=== PATIENT | female | born 1985 | race Two or more races ===

== ENCOUNTER 2024-10-06 10:25 | Emergency (ER) | payer MEDICAID, SELFPAY ==
[2024-10-06 10:30] VITALS: BP 157/97; PULSE 75; RESP 22; TEMP 37; O2SAT 97; BMI 34.0
--- NOTE | 2024-10-06 10:38 | XR_ITS ---
Examination: CT abdomen and pelvis without contrast. Coronal 3-D reconstructions. Sagittal 2-D reconstructions. Date and time of exam:October 06, 2024 1220 hrs. Indications: Onset right flank pain blood in the urine and pain with urination beginning 3 days ago CTDI: vol (mGy): 11.4 DLP: (mGycm): 611 Technique: Axial images of the abdomen have been obtained, 3 mm slice thickness Intravenous contrast material has not been administered. Low dose protocols were performed. One or more of the following dose reduction techniques were used; automated exposure control, adjustment of the mA and/or KV according to patient size, use of iterative reconstruction technique. Findings: No visualized liver or splenic lesion No gallstones No pancreatic or adrenal mass No renal or ureteral calculi, no hydronephrosis Aorta normal size Normal appendix 17 mm fat-containing umbilical hernia No bowel obstruction Retroverted uterus with diffusely enlarged fundus No bladder mass or bladder calculi Impression: No renal or ureteral calculi, no hydronephrosis No bladder mass or bladder calculi Normal appendix Diffuse enlarged fundus of uterus, consider pelvic sonography follow-up
--- NOTE | 2024-10-06 10:38 | PD.EDRME ---
Rapid Medical Screening Exam RME Arrival date/time: 10/06/24 10:25 39-year-old female presents emergency department complains of right flank pain dysuria Chief Complaint: Back Pain/Injury Time Seen by Provider: 10/06/24 10:35 Vital signs: Vital Signs Temperature 98.6 F 10/06/24 10:30 Pulse Rate 75 10/06/24 10:30 Respiratory Rate 22 H 10/06/24 10:30 Blood Pressure 157/97 H 10/06/24 10:30 Pulse Oximetry (%) 97 10/06/24 10:30 Oxygen Delivery Method Room Air 10/06/24 10:30
[2024-10-06] MEDS: ONDANSETRON ODT 4 MG TABRAP PO (11:01)
[2024-10-06] MEDS: KETOROLAC INJ 30 MG/ML VIAL IM (11:01)
[2024-10-06 11:02] LABS: Collection Type, Urine Clean Catch
[2024-10-06 11:22] LABS: Amorphous Crystals,Urine Present (Absent); Bacteria,Urine 2+; Bilirubin,Urine Negative (Negative); Blood,Urine 2+ (Negative); Color,Urine Yellow (Lt Yel-Yel); Culture Indicated,Urine Contaminated; Glucose, Urine Negative (Negative); Ketones,Urine Negative (Negative); Leukocyte Esterase,Urine Positive (Negative); Nitrite,Urine Negative (Negative); PH,Urine 7.5 (5.0-7.0); Protein,Urine 1+ (Neg - Trace); RBC,Urine 98 /hpf (0-3); Specific Gravity,Urine 1.021 (1.001-1.035); Squamous Epithelial Cell,Urine 61 /hpf (0-5); Urobilinogen,Urine Negative mg/dL (0.0-1.0); WBC,Urine 44 /hpf (0-5)
[2024-10-06 11:25] LABS: Clarity,Urine Turbid (Clear/Hazy); HCG Qualitative,Urine Negative
[2024-10-06 11:42] LABS: Basophils % (Auto) 0 % (0-2.5); Eosinophils # (Auto) 0.2 Thou/mm3 (0.0-0.5); Eosinophils % (Auto) 2 % (0-10); Hematocrit 39.1 % (36.0-46.0); Hemoglobin 13.3 g/dL (12.0-16.0); Immature Granulocytes % (Auto) 1 % (0-0); Immature Granulocytes Auto 0.05 Thou/mm3 (0.00-0.00); Lymphocytes # (Auto) 3.3 Thou/mm3 (1.0-4.8); Lymphocytes % (Auto) 40 % (10-50); Mean Corpuscular Hemoglobin 30.2 pg (25.0-35.0); Mean Corpuscular Volume 89 fL (80-100); Monocytes # (Auto) 0.6 Thou/mm3 (0.0-0.8); Monocytes % (Auto) 7 % (0-12); Neutrophils # (Auto) 4.2 Thou/mm3 (1.8-7.7); Neutrophils % (Auto) 51 % (37-80); Nucleated Red Blood Cell % 0 /100 WBC (0); Platelet Count 325 Thou/mm3 (140-440); RDW Standard Deviation 40.9 fL (36.4-46.3); White Blood Count 8.4 Thou/mm3 (3.6-11.0)
[2024-10-06 12:21] LABS: Alanine Aminotransferase 26 U/L (10-49); Albumin, Serum 4.4 gm/dL (3.5-5.0); Albumin/Globulin Ratio 1.5 (1.2-2.2); Alkaline Phosphatase 52 U/L (46-116); Anion Gap 6 (7-16); Aspartate Amino Transferase 18 U/L (0-34); BUN/Creatinine Ratio 15 Ratio (12-20); Bilirubin,Total 0.7 mg/dL (0.3-1.2); Blood Urea Nitrogen 9 mg/dL (9-23); Calcium 9.3 mg/dL (8.3-10.6); Calcium (Corrected) 9.3 mg/dL (8.5-10.1); Carbon Dioxide 26.4 mMol/L (20.0-31.0); Chloride 105 mMol/L (98-107); Creatinine (Component) 0.6 mg/dL (0.6-1.3); Estimated Creatinine Clearance 136.3 mL/min (>60); Glucose 88 mg/dL (74-106); Lipase 39 U/L (12-53); Osmolality,Calculated 271 (275-295); Sodium 137 mMol/L (136-145); Total Protein 7.4 gm/dL (5.7-8.2); eGFR > 60 See Note
--- NOTE | 2024-10-06 13:11 | PD.EDBACK ---
ED Back Injury Pain RME/HPI General Chief Complaint: Back Pain/Injury Stated Complaint: RIGHT SIDED FLANK PAIN W/BLOOD IN URINE Time Seen by Provider: 10/06/24 10:35 Arrival date/time: 10/06/24 10:25 39-year-old female presents to the emergency department complaints of right flank pain and dysuria patient for symptoms ongoing for last couple of days patient reports no chest pain shortness of breath headache dizziness weakness Limitations: no limitations RME / HPI RME / HPI Narrative: 10/06/24 10:25 39-year-old female presents emergency department complains of right flank pain dysuria Related Data Home Medications ?Medication ?Instructions ?Recorded ?Confirmed vitamins-iron fumarate 27 1 tab PO QDAY 10/02/18 10/02/18 mg iron-folic acid 0.8 mg tablet ( Vitamin) Previous Rx's ?Medication ?Instructions ?Recorded ciprofloxacin HCl 500 mg tablet 500 mg PO BID 7 days #14 tabs 10/06/24 ibuprofen 800 mg tablet 800 mg PO TID PRN pain #30 tabs 10/06/24 Allergies Allergy/AdvReac Type Severity Reaction Status Date / Time acetaminophen Allergy Severe Swelling, Verified 10/06/24 10:27 SOB Review of Systems Review of Systems Systems Reviewed: All systems reviewed, normal except as documented Constitutional Constitutional: Reports system reviewed and no additional complaints, except as documented, Denies fever(s) and Denies headache(s) Eyes Eyes: Reports system reviewed and no additional complaints, except as documented and Denies blurry vision ENT Ears, Nose, Mouth, and Throat: Reports system reviewed and no additional complaints, except as documented, Denies headache(s), Denies nasal congestion and Denies nasal discharge Cardiovascular Cardiovascular: Reports system reviewed and no additional complaints, except as documented, Denies chest pain and Denies dyspnea Respiratory Respiratory: Reports system reviewed and no additional complaints, except as documented, Denies chest congestion, Denies cough and Denies dyspnea Gastrointestinal Gastrointestinal: Reports system reviewed and no additional complaints, except as documented and Denies abdominal pain Musculoskeletal Musculoskeletal: Reports system reviewed and no additional complaints, except as documented and Reports back pain Integumentary/Breasts Skin/Breast: Reports system reviewed and no additional complaints, except as documented and Denies rash Neurologic Neurologic: Reports system reviewed and no additional complaints, except as documented, Reports as per HPI and Denies headache(s) Past Medical History Surgical History SURGICAL: Negative Section Social History SMOKING STATUS: Never smoker ED Exam General Limitations: Present no limitations General appearance: Present alert and in no apparent distress Head Head exam: Present atraumatic Eye Eye exam: Present normal appearance, PERRL and EOMI ENT ENT exam: Present normal exam, normal oropharynx and mucous membranes moist Neck Neck exam: Present normal inspection, full ROM and trachea midline Chest Chest inspection: Present normal inspection and symmetric chest wall rise Respiratory Respiratory exam: Present normal lung sounds bilaterally Cardiovascular Cardiovascular exam: Present regular rate, normal rhythm and normal heart sounds Abdominal Exam Abdominal exam: Present soft and normal bowel sounds; Absent distention, tenderness, guarding, rebound or rigidity Extremities Exam Extremities exam: Present normal inspection and full ROM Back Exam Back exam: Present normal inspection and full ROM Neurological Exam Neurological exam: Present alert, oriented X3, CN II-XII intact, normal gait and reflexes normal; Absent motor sensory deficit Psychiatric Psychiatric exam: Present normal affect and normal mood Skin Skin exam: Present warm, dry, intact and normal color; Absent rash Course Quality Measures none Orders Category Date Time Status CT abdomen pelvis wo con Stat Exams 10/06/24 10:38 Completed CBC Stat Lab 10/06/24 11:17 Completed Comprehensive Metabolic Panel Stat Lab 10/06/24 11:17 Completed HCG Qualitative,Urine Stat Lab 10/06/24 10:54 Completed Lipase Stat Lab 10/06/24 11:17 Completed UA, C/S IF [Urinalysis, C/S if Indicated] Stat Lab 10/06/24 10:54 Completed Ketorolac Inj [Toradol Inj] Med 10/06/24 10:38 Discontinued 30 mg IM X1 ONE Lidocaine 1% 20 ml [Xylocaine 1% 20 ML] Med 10/06/24 13:11 Discontinued 2.1 ml INFL X1 ONE Ondansetron Odt [Zofran Odt] Med 10/06/24 10:38 Discontinued 4 mg PO X1 ONE cefTRIAXone [Rocephin] Med 10/06/24 13:11 Discontinued 1,000 mg IM X1 ONE Vital Signs Vital signs: Vital Signs Temperature 98.6 F 10/06/24 10:30 Pulse Rate 75 10/06/24 10:30 Respiratory Rate 22 H 10/06/24 10:30 Blood Pressure 157/97 H 10/06/24 10:30 Pulse Oximetry (%) 97 10/06/24 10:30 Oxygen Delivery Method Room Air 10/06/24 10:30 O2 saturation 97% room air within normal limits Back Pain / Injury MDM Narrative MDM Narrative:: 39-year-old female presents to the emergency department complaints of right flank pain and dysuria patient for symptoms ongoing for last couple of days patient reports no chest pain shortness of breath headache dizziness weakness On exam patient appears to have pain in right flank region Blood work, urinalysis and CT scan obtained Urinalysis consistent with UTI CT scan obtained no acute emergent findings noted Patient given Toradol and Zofran at the time reevaluation patient reports her symptoms have significantly improved Patient discharged after receiving an injection of Rocephin Patient discharged home in no distress to follow-up with primary care doctor in the next 24 to 48 hours and for any worsening symptoms to return to the ER immediately Patient data External records reviewed:: [facility] previous records Clinical information provided by:: patient Social determinants that could affect healthcare access:: none Patient has the following chronic illnesses:: None How is presenting disease/condition affected by chronic disease/condition?: no chronic disease Evaluation data The following diagnostics were reviewed and interpreted by me:: lab results and radiology exam(s) Lab and/or radiology exams considered but not ordered:: Labs radiology obtained Interpretation Summary: Reviewed by me Medications / Prescriptions Medications or Prescriptions considered but not ordered:: Given Medication administrations:: Medication Administration History Discontinued Medications Ceftriaxone Sodium (Ceftriaxone Sod Inj 1,000 Mg Vial) 1,000 mg IM X1 ONE Stop: 10/06/24 13:12 Last Admin: 10/06/24 13:19 Dose: 1,000 mg Documented By: OA Ketorolac Tromethamine (Ketorolac Inj 30 Mg/Ml Vial) 30 mg IM X1 ONE Stop: 10/06/24 10:39 Last Admin: 10/06/24 11:01 Dose: 30 mg Documented By: TM Lidocaine HCl (Lidocaine Hcl 1% 20 Ml Vial) 2.1 ml INFL X1 ONE Stop: 10/06/24 13:12 Last Admin: 10/06/24 13:19 Dose: 2.1 ml Documented By: OA Ondansetron HCl (Ondansetron Odt 4 Mg Tabrap) 4 mg PO X1 ONE; Protocol Stop: 10/06/24 10:39 Last Admin: 10/06/24 11:01 Dose: 4 mg Documented By: TM Given Consultations Consultation(s) initiated? (list below): No Diagnosis Differential diagnosis back pain/injury: lumbar radiculopathy, sciatica and strain of lumbar region Most likely diagnosis given after review of the tests above:: UTI Admission Indicated Admission indicated?: not indicated Admission Request Was there a request for admission?: No Disposition Plan Disposition Plan: Discharge Discharge Attestation Discharge Attestation: The patient and all family members were given an opportunity to ask questions and understood the discharge instructions. Discharge instructions specifically effects, indications for sooner follow up or return to the emergency department, and the expected course of current diagnosis. Patient condition: Stable Discharge Plan Plan Patient Disposition: HOME (Self Care) Disposition Comment: Stable Prescriptions/Referrals Prescriptions/Med Rec: New ibuprofen 800 mg tablet 800 mg PO TID PRN (Reason: pain) Qty: 30 0RF ciprofloxacin HCl 500 mg tablet 500 mg PO BID 7 Days Qty: 14 0RF No Action vit-iron fum-folic ac [ Vitamin] 27 mg iron- 0.8 mg Tablet 1 tab PO QDAY Referrals: Jacob Phillip MD [Primary Care Provider] - In 1 week Problem List Clinical Impression: UTI (urinary tract infection) Patient/Caregiver Discharge Instructions Education Materials: Urinary Tract Infections in Women Additional Instructions: Please follow up with your primary care doctor in the next 24-48hrs for any worsening symptoms return here immediately Print Language: Bengali Stand Alone Forms: Corinne Award Info., Patient Portal Info Letter PA/FRANCIS Supervising Physician FELICITA/FRANCIS Supervising Physician: Dr. Santillan
[2024-10-06] MEDS: LIDOCAINE HCL 1% 20 ML VIAL 2.1 ML INFL (13:19)
[2024-10-06] MEDS: cefTRIAXone SOD INJ 1,000 MG VIAL 1000 MG IM (13:19)
== END 2024-10-06 14:39 | disposition home or self-care (01) ==
PROVIDERS: Nurse Practitioner Primary Care; Emergency Provider Emergency Medicine; PCP Family Medicine
DX: N39.0 Urinary tract infection, site not specified (principal); R10.9 Unspecified abdominal pain
CPT/HCPCS: 36415; 74176; 80053; 81001; 81025; 83690; 85025; 96372; 99284; J0696; J1885; J3490; Q0162